=== PATIENT | male | born 1995 | race Caucasian/White ===

== ENCOUNTER 2022-01-16 12:00 | Emergency (ER) | payer OTHER ==
[~2022-01-16] VITALS: Ht 185.4 cm; Wt 106.8 kg
[2022-01-16 12:17] VITALS: BP 133/79; TEMP 98.1
[2022-01-16] MEDS ORDERED: CEPHALEXIN250 M1 PO (15:15)
[2022-01-16 16:07] VITALS: PULSE 65
== END 2022-01-16 16:07 | disposition home or self-care (01) ==
LOC: COL.ER 12:00
DX: S61.411A Laceration without foreign body of right hand, initial encounter (principal); F17.200 Nicotine dependence, unspecified, uncomplicated; Z23 Encounter for immunization; W23.0XXA Caught, crushed, jammed, or pinched between moving objects, initial encounter; Y92.812 Truck as the place of occurrence of the external cause